=== PATIENT | female | born 1995 | race African-American/Black ===

== ENCOUNTER 2017-04-03 17:31 | Observation (INO) | payer MEDICAID ==
[2017-04-03] MEDS ORDERED: PREN-88 PO (17:43)
[2017-04-03 18:19] LABS: CLARITY URINE CLOUDY (CLEAR); COLOR URINE YELLOW (YELLOW); GLUCOSE URINE NEGATIVE (NEGATIVE); KETONES URINE NEGATIVE (NEGATIVE); LEUKOCYTE ESTERASE URINE 3+ (NEGATIVE); NITRITE URINE NEGATIVE (NEGATIVE); OCCULT BLOOD URINE 3+ (NEGATIVE); PROTEIN URINE 1+ (NEGATIVE)
== END 2017-04-03 20:20 | disposition home or self-care (01) ==
LOC: L&D 17:31
PROVIDERS: ADMIT Obstetrics & Gynecology; ATTEND Obstetrics & Gynecology
DX: O46.93 Antepartum hemorrhage, unspecified, third trimester (principal); Z3A.28 28 weeks gestation of pregnancy
CPT/HCPCS: 76805; 76818; 81001; G0378

== ENCOUNTER 2017-06-17 01:32 | Inpatient (IN) | payer MEDICAID ==
[~2017-06-17] VITALS: Ht 162.6 cm; Wt 82.6 kg
[~2017-06-17 01:32] MED LIST: PREN-88 PO
[2017-06-17] MEDS ORDERED: NALOXONE HCL 0.4 MG/ML 1ML VIAL IM PRN (03:00)
[2017-06-17] MEDS ORDERED: CARBOPROST TROMETHAMINE 250 MCG/ML AMPUL IM PRN (03:00)
[2017-06-17] MEDS ORDERED: METHYLERGONOVINE MALEATE 0.2 MG/ML IM PRN (03:00)
[2017-06-17] MEDS ORDERED: MISOPROSTOL 100MCG TABLET VG SCH (03:00)
[2017-06-17] MEDS ORDERED: LIDOCAINE HCL 1% 20ML VIAL (Pyxis) INJ INFIL SCH (03:00)
[2017-06-17] MEDS: LACTATED RINGERS 1,000 ML IV SCH ×3 (03:04→10:53)
[2017-06-17 03:40] LABS: BASOPHILS % 0.3 % (0.0-2.0); EOSINOPHILS % 0.2 % (0.0-5.0); HEMATOCRIT. 36.7 % (36.0-48.0); HEMOGLOBIN. 12.4 g/dL (12.0-16.0); LYMPHOCYTES % 15.8 % (20.0-50.0); MEAN CORPUSCULAR HEMOGLOBIN 32.1 pg (28.0-32.0); MEAN CORPUSCULAR VOLUME 94.6 fL (81.0-99.0); MEAN PLATELET VOLUME 9.9 fl (7.4-10.4); NEUTROPHILS % 76.7 % (40.0-76.0); PLATELET 160 x1000/uL (130-400); RED BLOOD CELL COUNT 3.88 mill/uL (4.2-5.4); RED CELL DISTRIBUTION WIDTH 13.3 % (11.6-14.6)
[2017-06-17 03:43] LABS: INR 0.9; PARTIAL THROMBOPLASTIN TIME 28.8 sec (23.4-31.0); PROTHROMBIN TIME 9.9 sec (9.4-11.6)
[2017-06-17] MEDS: DEXT 5%/LR + PITOCIN 20UNITS/L 1,000 ML IV SCH (07:00)
[2017-06-17 08:09] LABS: HEPATITIS B SURFACE ANTIGEN NEGATIVE; RUBELLA IGG 13.8 IU/mL (4.99-10)
[2017-06-17] MEDS: BUTORPHANOL TARTRATE 2 MG/ML VIAL IV PRN ×2 (08:38→11:16)
[2017-06-17] MEDS ORDERED: FENTANYL CITRATE/PF 50MCG/ML 2ML VIAL ONE (15:22)
[2017-06-17] MEDS ORDERED: BUPIVACAINE HCL/NS/PF EPIDURAL 100 ML EP ONE ×2 (15:24→23:38)
[2017-06-17] MEDS ORDERED: BUPIVACAINE HCL/PF 0.25% (2.5MG/ML) 10ML ONE (15:24)
[2017-06-17] MEDS ORDERED: BUPIVACAINE HCL/NS/PF EPIDURAL 100 ML EP SCH (16:00)
[2017-06-17] MEDS ORDERED: DIPHENHYDRAMINE 50MG/ML VIAL IM PRN (16:00)
[2017-06-17] MEDS ORDERED: ONDANSETRON HCL 4MG/2ML VIAL IV PRN (16:00)
[2017-06-18] MEDS: LACTATED RINGERS 1,000 ML IV SCH (00:44)
[2017-06-18] MEDS: DEXT 5%/LR + PITOCIN 20UNITS/L 1,000 ML IV SCH (01:22)
[2017-06-18] MEDS ORDERED: DEXT 5%/LR + PITOCIN 20UNITS/L 1,000 ML IV SCH (01:48)
[2017-06-18] MEDS ORDERED: RHO(D) IMMUNE GLOBULIN 300 MCG/SYR IM PRN (02:00)
[2017-06-18] MEDS ORDERED: IBUPROFEN 400MG TABLET PO PRN (02:00)
[2017-06-18] MEDS ORDERED: METHYLERGONOVINE MALEATE 0.2 MG/ML IM PRN (02:00)
[2017-06-18] MEDS ORDERED: LANOLIN OINT 0.25 GM TUBE TOP PRN (02:00)
[2017-06-18 04:45] VITALS: BP 102/70
[2017-06-18 05:20] VITALS: BP 111/73
[2017-06-18 06:01] VITALS: BP 101/73
[2017-06-18 08:00] VITALS: BP 114/71
[2017-06-18] MEDS: PRENATAL VIT/FE FUMARATE/FA TABLET PO SCH (09:03)
[2017-06-18] MEDS: IBUPROFEN 800MG TABLET PO PRN ×2 (09:04→18:38)
[2017-06-18 16:12] VITALS: BP 113/69
[2017-06-18 19:08] LABS: BASOPHILS % 0.3 % (0.0-2.0); EOSINOPHILS % 0.6 % (0.0-5.0); HEMATOCRIT. 24.3 % (36.0-48.0); HEMOGLOBIN. 8.2 g/dL (12.0-16.0); LYMPHOCYTES % 13.9 % (20.0-50.0); MEAN CORPUSCULAR HEMOGLOBIN 31.9 pg (28.0-32.0); MEAN PLATELET VOLUME 9.9 fl (7.4-10.4); MONOCYTES % 6.5 % (2.0-8.0); NEUTROPHILS % 78.7 % (40.0-76.0); PLATELET 148 x1000/uL (130-400); RED BLOOD CELL COUNT 2.56 mill/uL (4.2-5.4); RED CELL DISTRIBUTION WIDTH 13.3 % (11.6-14.6)
[2017-06-18 20:00] VITALS: BP 100/54
[2017-06-19 00:18] VITALS: BP 109/69
[2017-06-19] MEDS: IBUPROFEN 800MG TABLET PO PRN ×2 (00:18→06:26)
[2017-06-19 08:00] VITALS: BP 120/74
[2017-06-19] MEDS: PRENATAL VIT/FE FUMARATE/FA TABLET PO SCH (08:20)
[2017-06-19 10:30] LABS: CLARITY URINE CLEAR (CLEAR); COLOR URINE YELLOW (YELLOW); GLUCOSE URINE NEGATIVE (NEGATIVE); KETONES URINE NEGATIVE (NEGATIVE); LEUKOCYTE ESTERASE URINE 2+ (NEGATIVE); NITRITE URINE NEGATIVE (NEGATIVE); OCCULT BLOOD URINE 3+ (NEGATIVE); PH URINE 6.5 (4.5-8.0); PROTEIN URINE 1+ (NEGATIVE); SPECIFIC GRAVITY URINE 1.019 (1.005-1.030); UROBILINOGEN URINE 0.2 E.U./dL (0.2-1.0)
[2017-06-19 11:08] LABS: *AMPHETAMINES SCREEN URINE NEGATIVE (NEGATIVE); *BARBITURATES SCREEN URINE NEGATIVE (NEGATIVE); *BENZODIAZEPINES SCREEN URINE NEGATIVE (NEGATIVE); *COCAINE SCREEN URINE NEGATIVE (NEGATIVE); CANNABINOID URINE SCREEN NEGATIVE (NEGATIVE); METHADONE URINE SCREEN NEGATIVE (NEGATIVE); OPIATES URINE SCREEN NEGATIVE (NEGATIVE); PHENCYCLIDINE URINE SCREEN NEGATIVE (NEGATIVE)
[2017-06-19] MEDS ORDERED: TETANUS, DIPHTHERIA, PERTUSSIS VAC/PF 0.5ML (>7YR OLD) IM ONE (12:30)
== END 2017-06-19 13:15 | disposition home or self-care (01) | DRG 560 ==
LOC: L&D 01:32 → OBSVTOIN 01:32 → 7EST PP/OB 06-18 04:40
PROVIDERS: ADMIT Obstetrics & Gynecology; ATTEND Obstetrics & Gynecology
PROC: 10E0XZZ Delivery of Products of Conception, External Approach (ICD-10-PCS; 2017-06-18)
PROC: 3E0R3CZ (ICD-10-PCS; 2017-06-18)
PROC: 00HU33Z Insertion of Infusion Device into Spinal Canal, Percutaneous Approach (ICD-10-PCS; 2017-06-18)
PROC: 0W8NXZZ Division of Female Perineum, External Approach (ICD-10-PCS; principal; 2017-06-18 00:25)
PROC: 3E0234Z Introduction of Serum, Toxoid and Vaccine into Muscle, Percutaneous Approach (ICD-10-PCS; 2017-06-19)
DX: O48.0 Post-term pregnancy (principal); D62 Acute posthemorrhagic anemia; O90.89 Other complications of the puerperium, not elsewhere classified; R00.0 Tachycardia, unspecified; Z37.0 Single live birth; Z3A.40 40 weeks gestation of pregnancy; Z23 Encounter for immunization; O99.013 Anemia complicating pregnancy, third trimester
CPT/HCPCS: 36415; 76815; 76818; 80305; 81001; 85025; 85610; 85730; 86592; 86703; 86762; 86850; 86900; 87340; 90715; 99281; J0595; J2590; J3010; J3490; J7120; A4315